=== PATIENT | female | born 1960 | race Caucasian/White ===

== ENCOUNTER 2022-03-16 06:17 | Day surgery (SDC) | payer BC, SELFPAY ==
[2022-03-16] VITALS (8 sets, daily range): BP systolic 139–161; BP diastolic 78–92; PULSE 60–76; RESP 16; TEMP 36.5–36.6; O2SAT 97–99; BMI 31.8
[2022-03-16] MEDS: BUPIVACAINE 0.5% 30 ML 5 ML INJECTION (07:23)
[2022-03-16] MEDS: lidocaine HCL 2 % MULTIDOSE 20 ML VIAL 7 ML INJECTION (07:23)
--- NOTE | 2022-03-16 07:39 | SUR.OPER ---
PATIENT QUESTIONS ANSWERED SATISFACTORILY PREOPERATIVELY.? PATIENT BROUGHT TO OR #3 PER WHEELCHAIR.? Patient positioned supine on OR #3 bed.? The perioperative?team supported right arm bilaterally on arm boards. Final approval of positioning by surgeon.? PRIOR TO LOCAL INJECTION, TIME OUT PREFORMED AT 07:23.
--- NOTE | 2022-03-16 07:43 | PM.ORPRC ---
Procedure Note Date of procedure: 03/16/22 Procedure: Preop diagnosis: Left upper extremity carpal tunnel syndrome Postop diagnosis: Left upper extremity carpal tunnel syndrome Procedure: Left upper extremity carpal tunnel release Anesthesia: Local Surgeon: Kevin Perez MD ophthalmic medical assistant: RACHEL Dos Santos EBL: 5 mL Complications: None Specimens: None Drains: None Indications: The patient has a history of left upper extremity carpal tunnel syndrome symptoms. Despite appropriate nonoperative management consisting of nighttime bracing and occupational therapy they continue to have symptoms. Operative intervention was recommended. The risks, benefits alternatives and expected outcomes were discussed in detail. These included but were not limited to: Infection, bleeding, injury to blood vessel or nerve, venous thromboembolism. All questions were answered to their satisfaction. The patient was placed supine on the operating room table. Local anesthesia was established with 0.5% Marcaine without epinephrine and 2% lidocaine without epinephrine. The hand was prepped and draped in usual sterile fashion. The limb was elevated the forearm pneumatic tourniquet was inflated to 250 mm of mercury. A longitudinal incision was made centered over the radial border of the ring finger at the base of the palm. Subcutaneous dissection was sharply taken through the palmar fascia and the palmaris brevis to the transverse carpal ligament. The ligament was divided in line with the incision. Proximal and distal dissection was carried with tenotomy and Metzenbaum scissors for a wide decompression of the carpal tunnel. The tourniquet was released, bleeding was controlled with direct pressure. The wound was closed with a 3-0 nylon. A bulky dry dressing was applied, sponge and needle counts were correct x 2. The patient tolerated the procedure well, there were no apparent complications. They were sent to same day surgery in satisfactory condition. Plan: Use of the hand as tolerates. Discontinue the intraoperative dressing on postoperative day 3 and may get the wound wet as tolerates. Follow up in the office in 2 weeks for a wound check and suture removal.
[2022-03-16] MEDS: ETHYL CHLORIDE 1 APPLICATION 1 APPLIC TOPICAL (07:50)
== END 2022-03-16 08:06 | disposition home or self-care (01) ==
PROVIDERS: PCP Family Medicine; Visit Provider Orthopaedic Surgery
PROC: (CPT 64721; principal; 2022-03-16 07:15)
DX: G56.02 Carpal tunnel syndrome, left upper limb (principal)
CPT/HCPCS: 64721; J3490

== ENCOUNTER 2022-05-01 06:17 | Day surgery (SDC) | payer BC, SELFPAY ==
[2022-05-01] VITALS (10 sets, daily range): BP systolic 127–188; BP diastolic 67–87; PULSE 53–68; RESP 15–17; TEMP 36.6; O2SAT 96–99; BMI 31.8
[2022-05-01] MEDS: BUPIVACAINE 0.5% 30 ML INJECTION (07:25)
[2022-05-01] MEDS: lidocaine HCL 2 % MULTIDOSE 20 ML VIAL INJECTION (07:25)
--- NOTE | 2022-05-01 07:41 | PM.ORPRC ---
Procedure Note Date of procedure: 05/01/22 Procedure: Preop diagnosis: Right upper extremity carpal tunnel syndrome Postop diagnosis: Right upper extremity carpal tunnel syndrome Procedure: Right upper extremity carpal tunnel release Anesthesia: Local Surgeon: Kevin Perez MD assistant professor of marine biology: RACHEL Dos Santos EBL: 5 mL Complications: None Specimens: None Drains: None Indications: The patient has a history of right upper extremity carpal tunnel syndrome symptoms. Despite appropriate nonoperative management consisting of nighttime bracing and occupational therapy they continue to have symptoms. Operative intervention was recommended. The risks, benefits alternatives and expected outcomes were discussed in detail. These included but were not limited to: Infection, bleeding, injury to blood vessel or nerve, venous thromboembolism. All questions were answered to their satisfaction. The patient was placed supine on the operating room table. Local anesthesia was established with 0.5% Marcaine without epinephrine and 2% lidocaine without epinephrine. The hand was prepped and draped in usual sterile fashion. The limb was elevated the forearm pneumatic tourniquet was inflated to 250 mm of mercury. A longitudinal incision was made centered over the radial border of the ring finger at the base of the palm. Subcutaneous dissection was sharply taken through the palmar fascia and the palmaris brevis to the transverse carpal ligament. The ligament was divided in line with the incision. Proximal and distal dissection was carried with tenotomy and Metzenbaum scissors for a wide decompression of the carpal tunnel. The tourniquet was released , bleeding was controlled with direct pressure. The wound was closed with a 3-0 nylon. A bulky dry dressing was applied, sponge and needle counts were correct x 2. The patient tolerated the procedure well, there were no apparent complications. They were sent to same day surgery in satisfactory condition. Plan: Use of the hand as tolerates. Discontinue the intraoperative dressing on postoperative day 3 and may get the wound wet as tolerates. Follow up in the office in 2 weeks for a wound check and suture removal. I will plan to see her at 6 weeks postop.
== END 2022-05-01 08:00 | disposition home or self-care (01) ==
LOC: OR 06:17
PROVIDERS: PCP Family Medicine; Visit Provider Orthopaedic Surgery
PROC: (CPT 64721; principal; 2022-05-01 07:15)
DX: G56.01 Carpal tunnel syndrome, right upper limb (principal)
CPT/HCPCS: 64721; J3490

== ENCOUNTER 2023-01-08 15:11 | Outpatient (CLI) | payer BC, SELFPAY ==
--- NOTE | 2023-01-08 15:30 | MR_ITS ---
[address] [address] Phone:?[phone] Fax:?[phone] Referring Physician Information: Kevin Perez M.D. [id number] [facility] [address] Phone:?[phone] Fax:?[phone] Patient:Loren Mcmullen D.O.B:?1960 Sex:?Female Phone:?[phone] [facility] MRN:?[id number] Exam Date:?01/08/2023 EXAM: MRI of the LEFT KNEE, without contrast CLINICAL HISTORY: Left knee pain. Evaluate for meniscal tear. COMPARISONS: Plain radiographs 12/26/2022. MRI 11/23/2016. TECHNICAL: MR sequences of the left knee: sagittals: PD, PDFS coronals: PD, T2FS axials: PD, PDFS CONTRAST: None SEDATION: None FINDINGS: Bones: No fracture, bone marrow contusion, or other suspicious bone marrow signal abnormality. 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 Retinacula: The medial and lateral retinacula are intact. Fat pads: The infrapatellar, quadriceps, and prefemoral fat pads are unremarkable. Knee joint: Effusion: Physiologic amount of joint fluid. Popliteal cyst: There is a 1.8 cm craniocaudad dimension by 1.7 cm in AP dimension by 1.5 cm in transverse dimension ganglion at the medial aspect of the femoral origin of the medial head of the gastrocnemius tendon. Intra-articular bodies: None. Posteromedial corner: The semimembranosus and pes anserine tendons are intact. Medial compartment: Medial meniscus: Inferiorly surfacing fraying versus ill-defined inferiorly surfacing tear of the posterior horn of the medial meniscus measuring 7 mm in length best seen on sagittal images 11 and 12, new compared to previous MRI 11/23/2016. Cartilage: Diffuse grade II chondromalacia over most of the weightbearing portion of the medial femoral condyle, similar compared to previous MRI 11/23/2016. Lateral compartment: Lateral meniscus: Intact. Cartilage: 9 mm in AP dimension by 7 mm in transverse dimension area of grade III chondromalacia over the posterior portion of the lateral tibial plateau, new compared to previous MRI 11/23/2016. 5 x 5 mm focus of grade II to III chondromalacia over the posterior weightbearing portion of the lateral femoral condyle, similar compared to previous MRI 11/23/2016. Ligaments: Anterior cruciate ligament: Intact. Posterior cruciate ligament: Intact. Medial collateral ligament: Intact. Posterior oblique ligament: Intact. Fibular collateral ligament: Intact. Posterolateral corner: The distal biceps femoris tendon, iliotibial band, popliteus tendon, popliteus muscle, popliteofibular ligament, and arcuate ligament are intact. Extensor mechanism: Patellar tendon: Intact. Quadriceps tendon: Intact. IMPRESSION: 1. Inferiorly surfacing fraying versus ill-defined inferiorly surfacing tear of the posterior horn of the medial meniscus measuring 7 mm in length, new compared to previous MRI 11/23/2016. 2. 9 x 7 mm area of grade III chondromalacia over the posterior portion of the lateral tibial plateau, new compared to previous MRI 11/23/2016. 5 x 5 mm focus of grade II to III chondromalacia over the posterior weightbearing portion of the lateral femoral condyle, similar compared to previous MRI 11/23/2016. 3. Diffuse grade III chondromalacia over all portions of the femoral trochlea diffuse grade II and III chondromalacia over all portions of the patella, similar compared to previous MRI 11/23/2016. 4. Diffuse grade II chondromalacia over most of the weightbearing portion of the medial femoral condyle, similar compared to previous MRI 11/23/2016. 5. 1.8 x 1.7 x 1.5 cm ganglion at the medial aspect of the femoral origin of the medial head of the gastrocnemius tendon, new compared to previous MRI 11/23/2016, of uncertain clinical significance. 6. No lateral meniscal or ligamentous pathology of the left knee. RCB Electronically signed on 01/09/2023 7:15:00 AM by Ruslan Joe M.D.
== END 2023-01-08 15:12 | disposition home or self-care (01) ==
LOC: MRI 15:11
PROVIDERS: PCP Family Medicine; Visit Provider Orthopaedic Surgery
DX: M25.562 Pain in left knee (principal); S83.242A Other tear of medial meniscus, current injury, left knee, initial encounter; M94.262 Chondromalacia, left knee; M22.42 Chondromalacia patellae, left knee
CPT/HCPCS: 73721

== ENCOUNTER 2023-02-21 08:27 | Day surgery (SDC) | payer BC, SELFPAY ==
[2023-02-21] VITALS (11 sets, daily range): BP systolic 127–157; BP diastolic 65–88; PULSE 55–76; RESP 14–16; TEMP 36.2–37; O2SAT 94–100; BMI 31.2
[2023-02-21] MEDS: LACTATED RINGERS 1000 ML 1,000 ML 100 ML IV (08:50)
[2023-02-21] MEDS: SODIUM CHLORIDE 0.9 % (FLUSH) 10 ML SYRINGE IVF (08:50)
--- NOTE | 2023-02-21 10:36 | W.ANESCHARGE ---
Anesthesia Charges Start Date/Time Anesthesia Start Date: 02/21/23 Anesthesia Start Time: 10:52 Stop Date/Time Anesthesia Stop Date: 02/21/23 Anesthesia Stop Time: 11:51
[2023-02-21] MEDS: BUPIVACAINE 0.25% 30 ML INJECTION (11:38)
--- NOTE | 2023-02-21 11:47 | P.ORPRC_ITS ---
Procedure Note Date of procedure: 02/21/23 Procedure: PREOPERATIVE DIAGNOSIS: Left knee medial meniscus tear, lateral meniscus tearing, medial and patellofemoral compartment osteoarthritis POSTOPERATIVE DIAGNOSIS: Left knee medial meniscus tear, lateral meniscus tearing, medial patellofemoral compartment osteoarthritis NAME OF OPERATION: Left knee arthroscopic partial medial and lateral meniscectomy, medial compartment chondroplasty SURGEON: Kevin Perez MD PREPRESS MANAGER: RACHEL Dos Santos ANESTHESIA: Spinal ESTIMATED BLOOD LOSS: 0 mL COMPLICATIONS: None SPECIMENS: None DRAINS: None PREOPERATIVE ANTIBIOTICS: Ancef 2 gram INDICATIONS: The patient is a 62-year-old with a history of left knee medial pain. MRI scan is consistent with a medial meniscus tear. Despite appropriate nonoperative management, including activity modification, antiinflammatories, [id number] pain medication, bracing, physical therapy, and injections they continue to have pain and disability. Operative intervention was offered. The risks, benefits and expected outcomes were discussed in detail. These included but were not limited to: Infection, bleeding, injury to blood vessel or nerve, venous thromboembolism. All questions were answered to their satisfaction. PROCEDURE: Spinal anesthesia was administered. The patient was placed supine on the operating room table. The left lower extremity was prepped and draped in the usual sterile fashion. The limb was exsanguinated with the Yobani bandage. The pneumatic tourniquet was inflated to 300 mmHg. A standard anterolateral portal was established. The arthroscope was introduced. The working portal was established anteromedially. Diagnostic arthroscopy was performed with findings as follows: The suprapatellar pouch is normal. Articular surface on the patella shows diffuse grade 2 change. Articular surface on the trochlea shows diffuse grade 3 change. The medial gutter is normal. The medial compartment shows diffuse grade 3 change on the medial femoral condyle, grade 2 change on the medial tibial p lateau. The medial meniscus has some degenerative fraying of the leading edge and undersurface of the posterior horn. The notch shows the ACL to be intact. The lateral compartment shows normal articular cartilage on the lateral femoral condyle and lateral tibial plateau. The lateral meniscus has degenerative fraying of the leading edge of the midbody and anterior horn. The lateral gutter is normal. The leading edge of the posterior horn of the medial meniscus was debrided with the basket. The undersurface was debrided with the shaver. The leading edge of the midbody and anterior horn of the lateral meniscus was debrided with the shaver. Unstable chondral flaps on the medial femoral condyle were debrided with the shaver. Arthroscopic instruments were removed, the portal sites were Steri-Stripped closed, the knee was infiltrated with 30 mL of 0.25% Marcaine without epinephrine. A dry dressing was applied, the tourniquet was released. Sponge and needle counts were correct x 2. The patient tolerated the procedure well. There were no apparent complications. They were carefully transferred to the hospital bed and taken to the postanesthesia care unit in satisfactory condition. PLAN: The patient will be discharged to home. They may weightbear as tolerates. Range of motion will be unrestricted. They will follow up in the office next week for a wound check.
--- NOTE | 2023-02-21 11:50 | W.ANESCHARGE ---
Anesthesia Charges Start Date/Time Anesthesia Start Date: 02/21/23 Anesthesia Start Time: 10:52 Stop Date/Time Anesthesia Stop Date: 02/21/23 Anesthesia Stop Time: 11:51
[2023-02-21] MEDS: IBUPROFEN 600 MG TABLET PO (13:00)
== END 2023-02-21 13:05 | disposition home or self-care (01) ==
LOC: OR 08:28
PROVIDERS: PCP Family Medicine; Visit Provider Orthopaedic Surgery
PROC: (CPT 29870; principal; 2023-02-21 10:45)
DX: M23.222 Derangement of posterior horn of medial meniscus due to old tear or injury, left knee (principal); M23.242 Derangement of anterior horn of lateral meniscus due to old tear or injury, left knee; M17.12 Unilateral primary osteoarthritis, left knee
CPT/HCPCS: 29880; 01400; A9270; J0665; J1100; J2250; J2405; J2704; J3010; J7120

== ENCOUNTER 2023-10-22 14:19 | Outpatient (CLI) | payer BC, SELFPAY ==
--- OUTSIDE RECORDS SUMMARY | 2023-10-22 14:23 | XMS_ITS | Clinical Summary ---
Author Organization [facility] Address [place], [place] [address] Care Team Providers Care Circulation Tender Name Role Phone Jin Bradley MD Primary Care Provider Yobani Abarca MD Unavailable [phone] Allergies Active Allergy Reactions Criticality Noted Date Comments Amoxicillin Rash 07/10/2006 Medications Medication Sig Dispensed Refills Start Date End Date Status fexofenadine (SYEDA) 180 mg tablet Take 1 tablet by mouth once daily with a meal. 0 12/14/2010 Active aspirin enteric coated 81 mg tablet Take 1 tablet by mouth once daily with a meal. 0 07/04/2011 Active cholecalciferol (VITAMIN D-3) 2,000 unit capsule Take 1 capsule by mouth once daily. 0 12/09/2017 Active hydroCHLOROthiazide (HCTZ) 25 mg tabletIndications:HTN (hypertension) Take 1 Tablet (25 mg) by mouth once daily. 90 Tablet 4 01/02/2023 Active levothyroxine (SYNTHROID) 112 mcg tabletIndications:Hypot hyroidism (acquired) Take 1 Tablet (112 mcg) by mouth before breakfast. 90 Tablet 3 01/02/2023 Active losartan (COZAAR) 100 mg tabletIndications:HTN (hypertension) Take 1 Tablet (100 mg) by mouth once daily. 90 Tablet 3 01/02/2023 Active lovastatin (MEVACOR) 40 mg tabletIndications:[place] suzanne blood pressure reading without diagnosis of hypertension Take 1 Tablet (40 mg) by mouth at bedtime. 90 Tablet 4 01/02/2023 Active omeprazole (PRILOSEC) 20 mg Delayed-Release capsuleIndications:Hist ory of gastroesophageal reflux (GERD) Take 1 Capsule (20 mg) by mouth once daily before a meal. 90 Capsule 3 01/02/2023 Active azaTHIOprine (IMURAN) 50 mg tabletIndications:Autoi mmune hepatitis (HC) Take 1 Tablet (50 mg) by mouth once daily. 90 Tablet 11 01/08/2023 Active Active Problems Problem Noted Date Diagnosed Date Hypertrophy of breast 06/23/2022 06/23/2022 Breast hypertrophy in female 12/01/2019 Eosinophilic esophagitis 04/15/2015 Overview: EGD 03/2015 eosinophilic esophagitis, try omeprazole, if not better patient should follow-up Acquired hypothyroidism 11/19/2014 CH (chronic hepatitis) 11/19/2014 Benign microscopic hematuria 02/19/2012 Overview: workup negative Elevated blood pressure read ing without diagnosis of hypertension 12/14/2010 Allergic rhinitis, cause unspecified 07/10/2006 autoimmmune hepatitis Diverticulitis Benign microscopic hematuria Overview: workup negative Polyp of colon Diarrhea Resolved Problems Problem Noted Date Diagnosed Date Resolved Date CH (chronic hepatitis) 07/15/200711/19 Unspecified hypothyroidism 07/10/2006 1 Overview: Hypothyroidism Encounters Date Type Department Care Team Description 09/10/[address] [address] Bijal Stone, DO Screening from Last 3 Months Immunizations Name Administration Dates Next Due Influenza A (H1N1), Inactivated 02/08/2009 Influenza, IIV3 (Age >=3 years) 11/28/2010,12/07,01/27/2003 Influenza, IIV4 11/29/2022, 2,11/16/2020,12/25/19 19,12/09/2017,12/14/2015,11/03/2014,10/28,11/12/2012 Td (Age >=7 Years) 11/22/2003 Tdap 10/28/2013 Zoster (Shingrix-RZV, recombinant) 04/10/2018, Family History Medical History Relation Name Comments Other Father parkinson,demen tia Diabetes Maternal Uncle Heart Disease Mother Stroke Mother Cancer-breast Paternal Aunt 1 Cancer-breast Paternal Aunt 2 Cancer-breast Paternal Aunt 3 Relation Name Status Comments Brother Alive Father 2009 Maternal Grandfather Maternal Grandmother Maternal Uncle Mother Alive Paternal Aunt 1 Paternal Aunt 2 Paternal Aunt 3 Paternal Grandfather Paternal Grandmother Sister 1 Alive Sister 2 Alive Sister 3 Alive Son Quinton Alive Social History Tobacco Use Types Packs/Day Years Used Date Smoking Tobacco: Former Cigarettes Q uit: 1989 Smokeless Tobacco: Never Tobacco Cessation:Counseling Given: Yes Alcohol Use Standard Drinks/Week Comments No 0 (1 standard drink = 0.6 oz pur e alcohol) rarely PHQ-2 Answer Date Recorded PHQ-2 TOTAL SCORE 0 01/02/2023 Social Connections Answer Date Recorded Frequency of Communication with Friends and Fami ly Not on file 02/09/2021 Financial Resource Strain Answer Date R ecorded Difficulty of Paying Living Expenses Not on file 02/09/2021 Difficulty of Paying Living Expenses Not on file 02/09/2021 Sex and Gender Information Value Date Recorded Sex Assigned at Not on file Gender Identity Not on file Sexual Orientation Not on file Obstetrics History Last Filed Vital Signs Vital Sign Reading Time Taken Comments Blood Pressure 112/62 02/04/2023 12:21 PM [employer] WORK[employer] Pulse 60 02/04/2023 12:21 PM [employer]SERVATION WORK[employer] Temperature 36.1 ??C (97 ??F) 02/04/2023 12:21 PM [employer] Respiratory Rate 18 02/04/2023 12:21 PM [employer]SERVATION WORK[employer] Oxygen Saturation 98% 02/04/2023 12:21 PM [employer] WORK[employer] Inhaled Oxygen Concentration - - Weight 82.6 kg (182 lb) 02/04/2023 12:21 PM [employer]ATION WORK[employer] Height 162.6 cm (5' 4) 02/04/2023 12:21 PM [employer]ATION WORK[employer] Body Mass Index 31.24 02/04/2023 12:21 PM [employer]SERVATION WORKER Plan of Treatment Upcoming Encounters Date Type Department Care Team (Late st Contact Info) Description 12/09/2023 9:10 AM CDT Hospital Encounter [facility] [address] [place] [address] Bijal Stone, DO [address] [place] [address] 12/09/2023 9:10 AM CDT - 12/09/2023 10:00 AM CDT Surgery [facility] [address] [facility] [place] [address] Bijal Stone DO [address] [facility] [place] [address] COLONOSCOPY Scheduled Procedures Name Priority Associated Diagnoses Date/Ti me COLONOSCOPY Screen for colon cancer 12/09/2023 9:10 AM CDT Health Maintenance Due Date Last Done Comments HIV for age 15-65 1975 COVID-19 vaccine series (2022- season) 2023 11/29/2022, 02/01/2022, 06/06/2021, Additional history exists Colonoscopy through age 75 06/04/2023 06/03/2018, Influenza for age 50-64 10/20/2023 11/30/19, 01/02/2022, 11/16/2020, Additional history exists Tetanus booster 10/29/2023 10/28/2013, 11/22/2003 Depression screening for age 12+ 01/03/2024 01/02/2023, 01/02/2022, 12/21/2020, Additional history exists Mammogram for age 45-75 01/30/2024 01/30/20 23, 01/09/2022, 12/19/2020, Additional history exists BMI (ht and wt on same day) for age 18+ 02/05/2024 02/04/2023, 01/02/2023, 01/02/2022, Additional history exists Pap test for age 21-65 12/21/2025 , 12/21/2020, 12/18/2017, Additional history exists Lipids for age 45-75 12/06/2027 12/05/2022, 10/03/2021, 12/20/2020, Additional history exists Tdap Completed 10/28/2013 Zoster (shingles) series for age 50+ Completed 04/10/2018, 01/13/2018 Hepatitis C screening for age 18-79 Completed 05/23/2018, 11/17/2002 Pneumococcal series for age 6-64 Aged Out No longer eligible based on patient's age to complete this topic Procedures Procedure Name Priority Date/Time Associated Diagnosis Comments XR MAMMO SAMUEL BILAT SCREEN Routine 01/29/2023 8:24 AM [employer]SERVATION WORKER Encounter for other screening for malignant neoplasm of breast LIPID PANEL W REFLEX MEASURED LDL Routine 12/05/2022 7:44 AM CDT Mixed hyperlipidemia HPV THIN PREP Routine 12/21/2020 11:07 AM CDT Pap smear for cervical cancer screening COLONOSCOPY 06/03/2018 12:36 PM CDT LIVER FIBROSIS FIBRO TEST ACTI TEST PANEL Routine 05/23/2018 2:11 PM CDT Autoimmune hepatitis (HC) from Last 3 Months or Most Recently Relevant to Health Maintenance Results * XR MAMMO SAMUEL BILAT SCREEN (01/29/2023 8:24 AM [employer]SERVATION WORKER) Anatomical Region Laterality Modality BREASTS, Breast Left, Breast Right Bilateral Mammography Impressions 01/29/2023 8:48 AM [employer]SERVATION WORKER ??There is no radiographic evidence for malignancy. ??Recommend annual mammograms. MAMMOGRAM ASSESSMENT: ??ACR 2 Benign PATIENTS: You will also receive a letter with your examination results in an easy to read format. ??If you have questions about your results, please contact your referring provider. Narrative 01/29/2023 8:48 AM CONSERVATION WORKER For Patients: As a result of the Century Cures Act, medical imaging exams and procedure reports are released immediately into your electronic medical record. You may view this report before your referring provider. If you have questions, please contact your health care provider. XR MAMMO SAMUEL BILAT SCREEN [[id number]] CLINICAL HISTORY: ??This is an asymptomatic 62 y.o. patient. INDICATION FOR EXAM: Mammogram Screening. TECHNIQUE: CC & MLO views were obtained. ??This study was evaluated with the assistance of Computer-Aided Detection. Breast Tomosynthesis was used in interpretation. COMPARISON FILMS: Yes 01/09/22 [facility] ?? FINDINGS: ??The breasts are almost entirely fatty. ??No suspicious masses or microcalcifications. ??There are benign appearing mass(es) and There are post surgical changes of both breasts. Jin Bradley MD MAMMO * LIPID PANEL W REFLEX MEASURED LDL (12/05/2022 7:44 AM CDT) CHOLESTEROL,TOTAL 125 100 - 199 mg/dL 12/05/2022 8:19 AM T [facility] Comment: Cholesterol, Total Reference Ranges Desirable <200 mg/dL Borderline 200-239 mg/dL High >=240 mg/dL TRIGLYCERIDES 90 <150 mg/dL 12/05/2022 8:19 AM T [facility] HDL CHOLESTEROL 41 >40 mg/dL 8:19 AM T [facility] NON-HDL CHOLESTEROL 84 <145 mg/dl 12/05/2022 8:19 AM T [facility] CHOL/HDL RATIO 3.05 <4.50 12/05/2022 8:19 AM [facility] LDL CHOLESTEROL 66 <=130 mg/dL 12/05/2022 8:19 AM [facility] VLDL CHOLESTEROL 18 <=30 mg/dL 12/05/2022 8:19 AM [facility] PROVIDER ORDERED STATUS RANDOM 12/05/2022 8:19 AM [facility] Blood BLOOD SPECIMEN / Unknown Venipuncture / Unknown 12/05/2022 7:44 AM CDT 12/05/2022 7:46 AM CDT Jin Bradley MD CHEMISTRY [facility] [address] [place] [address] * HPV HIGH RISK (12/21/2020 11:07 AM CDT) TYPE 16 Negative Negative 12/24/2020 12:45 PM CDT [facility] TYPE 18 Negative Negative 12/24/2020 12:45 PM CDT [facility] OTHER HIGH RISK TYPES Negative Negative 12/24/2020 12:45 PM CDT [facility] Other (Cervical) Non-Blood / Unknown 12/21/2020 11:07 AM CDT 12/22/2020 12:45 PM CDT Narrative [facility] - 12/24/2020 12:45 PM CDT HPV types 16, 18, 31, 33, 35, 39, 45, 51, 52, 56, 58, 59, 66 and 68 DNA were undetectable or below the pre-set threshold. Methodology: Cassandra Alissa 4800 HPV Test Jin Bradley MD MICROBIOLOGY [facility] [address] [place] [address], [place] * COLONOSCOPY (06/03/2018 12:36 PM CDT) 06/03/2018 12:3 6 PM CDT Narrative Transcriptions Eugenia Tian DO - 06/03/2018 2:08 PM CDT Patient Name: Susi Mcmullen Procedure Date: 06/03/2018 Gender: Female Date of : 1960 Admit Type: Ambulatory Procedure: Colonoscopy Proceduralist: Eugenia Tian MD [facility] Indications/Pre-Op Diagnosis: Screening for colorectal malignant neoplasm, Last colonoscopy 10 years ago Medications: Propofol per Anesthesia Procedure Description: The patient had risks, benefits and alternatives explained to andgave informed consent. The patient had a stable cardiopulmonary status and judged an adequate candidate for conscious sedation. The colonoscope was passed through the anus and advanced to theterminal ileum. The colonoscopy was performed without difficulty. Thecolonoscopy was technically difficult and complex due to a tortuous colon. The patient tolerated the procedure well. The quality of the bowel preparation was good. The terminal ileum, ileocecal valve,appendiceal orifice, and rectum were photographed. Complications: No immediate complications. Estimated Blood Loss & Specimen: Estimated blood loss was minimal. Specimen collected - Yes and sent to Laboratory Findings: Non-bleeding internal hemorrhoids were found during retroflexion. The hemorrhoids were Grade III (internal hemorrhoids that prolapse but require manual reduction). A 5 mm polyp was found in the ascending colon. The polyp was sessile. The polyp was removed with a hot snare. Resection and retrieval were complete. Verification of patient identification for the specimen was done. Estimated blood loss was minimal. Biopsies were taken with a cold forceps in the terminal ileum for histology. Verification of patient identification for the specimenwas done. Estimated blood loss was minimal. Biopsies for histology were taken with a cold forceps from the entire colon for evaluation of microscopic colitis. Non-bleeding internal hemorrhoids were found during retroflexion. The hemorrhoids were Grade II (internal hemorrhoids that prolapse butreduce spontaneously). Impressions/Post-Op Diagnosis: - Non-bleeding internal hemorrhoids. - One 5 mm polyp in the ascending colon, removed with a hot snare. Resected and retrieved. - Non-bleeding internal hemorrhoids. - Biopsies were taken with a cold forceps for histology in theterminal ileum. - Biopsies were taken with a cold forceps from the entire colon for evaluation of microscopic colitis. Recommendation: - Discharge patient to home. - Patient has a contact number available for emergencies. The signsand symptoms of potential delayed complications were discussed with the patient. Return to normal activities tomorrow. Written discharge instructions were provided to the patient. - High fiber diet. - Continue present medications. - Await pathology results. - Repeat colonoscopy in 5-10 years for surveillance based onpathology results. Moderate Sedation: Moderate (conscious) sedation was personally administered by an anesthesia professional. The following parameters were monitored:oxygen saturation, heart rate, blood pressure, and response to care. Eugenia Tian MD 06/03/2018 1:20:47 PM This report has been signed electronically. Note Initiated On: 06/03/2018 12:36 PM Eugenia Tian DO PROCEDURE ORD * (ABNORMAL) LIVER FIBROSIS, FIBRO TEST-ACTITEST PANEL (05/23/2018 2:11 PM CDT) FibroTest Score 0.33 9 7:13 AM CDT [facility] [employer] FibroTest Stage F1-F2 9 7:13 AM CDT [facility] FibroTest Interpretation minimal fibrosis 05/26/2018 7:13 AM CDT [facility] Comment: FibroTest estimates liver fibrosis FibroTest Score ?Stage ?Interpretation ??0.00-0.21 ?F0 ? no fibrosis ??0.21-0.27 ?F0-F1 ?no fibrosis ??0.27-0.31 ?F1 ? minimal fibrosis ??0.31-0.48 ?F1-F2 ?minimal fibrosis ??0.48-0.58 ?F2 ? moderate fibrosis ??0.58-0.72 ?F3 ? advanced fibrosis ??0.72-0.74 ?F3-F4 ?advanced fibrosis ??0.74-1.00 ?F4 ? severe fibrosis (Cirrhosis) ActiTest Score 0.04 05/26/2018 7:13 AM CDT [facility] ActiTest Grade A0 05/26/2018 7:13 AM T [facility] ActiTest Interpretation no activity 05/26/2018 7:13 AM T [facility] Comment: ActiTest estimates necroinflammatory activity ActiTest Score ? Grade ?Interpretation ??0.00-0.17 ?A0 ? no activity ??0.17-0.29 ?A0-A1 ?no activity ??0.29-0.36 ?A1 ? minimal activity ??0.36-0.52 ?A1-A2 ?minimal activity ??0.52-0.60 ?A2 ? significant activity ??0.60-0.62 ?A2-A3 ?significant activity ??0.62-1.00 ?A3 ? severe activity FibroTest-ActiTest Comment SEE COMMENTS 05/26/2018 7:13 AM [facility] Comment: The reliability of results is dependent on compliance with the preanalytical and analytical conditions recommended by [employer]. The tests have to be deferred for: acute hemolysis, acute hepatitis, acute inflammation, extra hepatic cholestasis. The advice of a specialist should be sought for interpretation in chronic hemolysis and Gilbert's syndrome. The test interpretation is not validated in liver transplant patients. Isolated extreme values of one of the components should lead to caution in interpreting the results. In case of discordance between a biopsy result and a test, it is recommended to seek advice of a specialist. The causes of these discordances could be due to a flaw of the test or to a flaw in the biopsy: i.e. a liver biopsy has a 33% variability rate for one fibrosis stage. FibroTest is interpretable for chronic hepatitis B and C, alcoholic and non alcoholic steatosis. ActiTest is interpretable for chronic hepatitis B and C. This test was developed and its performance characteristics determined by [facility] in a manner consistent with CLIA requirements. This test has not been cleared or approved by the U.S. Food and Drug Administration. [employer] Serial Number [id number] 05/26/2018 7:13 AM CDT [facility] Apolipoprotein A1, S 134(L) >=140 mg/dL 05/26/2018 7:13 AM CDT [facility] Qbkyc-[id number] , S 301(H) 100 - 280 mg/dL 05/26/2018 7:13 AM CDT [facility] Haptoglobin, S 144 30 - 200 mg/dL 05/26/2018 7:13 AM CDT [facility] Alanine Aminotrasferase (ALT), S 12 7 - 45 U/L 05/26/2018 7:13 AM CDT [facility] Gamma Glutamyltrasferase (GGT), S 24 5 - 36 U/L 05/26/2018 7:13 AM CDT [facility] Bilirubin, Total, S 0.4 <=1.2 mg/dL 05/26/2018 7:13 AM CDT [facility] Comment: Test Performed by: [facility] [address] [place] [address] Blood BLOOD SPECIMEN / Unknown Venipuncture / Unknown 05/23/2018 2:11 PM CDT 05/23/2018 2:11 PM CDT Yobani Abarca MD CHEMISTRY [facility] [address] [place] [address] from Last 3 Months or Most Recently Relevant to Health Maintenance Advance Directives * Full Code (Latest Code Status on File) Date Activated Date Inactivated Comments 12/01/2019 7:05 AM 12/01/2019 3:53 PM Question Answer Comments Code Status Discussion: Not Discussed * Full Code Date Activated Date Inactivated Comments 06/03/2018 11:43 AM 06/03/2018 4:09 PM Question Answer Comments Code Status Discussion: Discussed Care Teams Circulation Tender Relationship Specialty Start Date End Date Jin Bradley MD [address] [id number] PCP - General 06/14/11 Yobani Abarca MD [address] [facility] [place] [id number] Gastroenterology 06/14/11
--- NOTE | 2023-10-22 14:30 | MR_ITS ---
[address] [address] Phone:?[phone] Fax:?[phone] Referring Physician Information: Jurgen Medina [address] [facility] [address] Phone:?[phone] Fax:?[phone] Patient:Loren Mcmullen D.O.B:?1960 Sex:?Female Phone:?[phone] [facility] MRN:?[id number] Exam Date:?10/22/2023 EXAM: MRI of the LEFT KNEE, without contrast CLINICAL INFORMATION: Female, 63 years old, with left knee pain. INDICATION: Evaluate for internal derangement. PRIOR SURGERY: None reported. PLAIN FILMS: Knee radiograph dated 12/26/2022. COMPARISONS: Left knee MRI dated 01/07/2023 and 11/23/2016. TECHNICAL INFORMATION: Using a 1.5T MR scanner and a localizing surface coil: sagittals: PD, PDFS coronals: PD, T2FS axials: PD, PDFS SEDATION: None CONTRAST: None FINDINGS: Knee joint: Effusion: Moderate-marked left knee effusion, with synovitis. Popliteal cyst: Tiny, unruptured popliteal (Nieves's) cyst. Loose bodies: None. Subcutaneous and extra-articular soft tissues: Unremarkable. Ligaments: ACL: Intact ACL anteromedial and posterolateral bundles, without sprain or tear. PCL: Intact PCL, without acute or chronic injury. MCL: Intact MCL superficial and deep layers, without injury. LCL: Intact LCL, without injury. Posterolateral corner: Mild popliteus tendinopathy, without tear. Biceps femoris, iliotibial band, popliteofibular ligament and lateral gastrocnemius are intact. Posteromedial corner: Mild semimembranosus tendinopathy, without tear. Pes anserine tendons and posterior oblique ligament are without injury, tendinopathy or bursitis. Extensor mechanism: Patellar tendon: Intact, without tendinopathy. Quadriceps tendon: Intact, without tendinopathy. Retinacula: Medial and lateral retinacula are intact. Fat pads: Mild edema-like signal is present throughout the knee fat pads, in keeping with synovitis. Medial compartment: Medial meniscus: Complex, multidirectional tearing throughout the posterior horn/root of the lateral meniscus measuring 1.5 cm (sagittal PDFS series 6 images 10-14). This includes full-thickness radial tearing. Meniscal extrusion measures 6 mm. Medial femoral condyle & tibial plateau: Broad-based grade III chondromalacia throughout the central, appearing aspect of the medial compartment, with mild marginal osteophytosis. Lateral compartment: Lateral meniscus: No articular surface, meniscosynovial junction or root tear. No displacement, extrusion or parameniscal cyst. Lateral femoral condyle: Broad-based grade II chondromalacia of the central surface of the lateral femoral condyle, with mild marginal osteophytosis. Lateral tibial plateau: Broad-based grade II/III chondromalacia of the lateral tibial plateau, with mild marginal osteophytosis. Patellofemoral joint: Patella: Generalized grade III chondromalacia of the patella, with mild marginal osteophytic abdominal. Trochlea: Generalized grade III chondromalacia of the trochlea, with mild marginal osteophytosis. Proximal tibiofibular joint: Unremarkable, without evidence of ligament sprain injury, joint effusion or adjacent marrow edema. Bones: No stress/occult fractures or other marrow edema/pathology. IMPRESSION: 1. Complex, multidirectional tearing of the posterior horn/root of the medial meniscus, including a component of full-thickness radial tearing measures approximately 1.5 cm, with 6 cm of meniscal excision. 2. 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 3. Mild osteoarthritis of the lateral compartment. 4. Moderate-marked knee joint effusion, with synovitis and a tiny, unruptured popliteal (Nieves's) cyst. 5. Mild popliteus and semimembranosus tendinopathy, without tear. 6. No cruciate or collateral ligament sprain/tear. 7. No lateral meniscal tear. BC Electronically signed on 10/23/2023 9:24:00 AM by Stephane Medina M.D.
== END 2023-10-22 14:20 | disposition home or self-care (01) ==
LOC: MRI 14:19
PROVIDERS: PCP Family Medicine; Visit Provider Physician Assistant
DX: M25.562 Pain in left knee (principal); S83.232A Complex tear of medial meniscus, current injury, left knee, initial encounter; M17.12 Unilateral primary osteoarthritis, left knee; M25.462 Effusion, left knee; M71.22 Synovial cyst of popliteal space [Baker], left knee; Z98.890 Other specified postprocedural states
CPT/HCPCS: 73721